=== PATIENT | male | born 1990 | race Caucasian/White ===

== ENCOUNTER 2018-01-02 11:04 | Emergency (ER) | payer SELFPAY ==
[2018-01-02 11:49] VITALS: BP 111/65; PULSE 71; RESP 20; TEMP 98.1; O2SAT 99
--- NOTE | 2018-01-02 12:49 | RADRPT ---
EXAM DATE/TIME: 01/02/2018 12:40 [place] COMPARISON: No previous studies available for comparison. INDICATIONS : Injured right arm when catching a dog last night, felt something in his arm "pop", felt the "pop" aga in this morning, severe pain entire right forearm, especially distal 1/3. Has had surgery on right fo rearm 9 times in 7years. MEDICAL HISTORY : right forearm fracture SURGICAL HISTORY : surgery right forearm x 9 ENCOUNTER: Initial ACUITY: 1 day PAIN SCORE: 10/10 LOCATION: Right forearm FINDINGS: Small defects are identified throughout the distal radius and ulna from previous intramedullary plate s. A nondisplaced fracture is identified through the distal shaft of the radius. Ulna is intact. Radiocarpal joint and elbow joints are intact. CONCLUSION: Nondisplaced fracture right radius. Multiple screw defects throughout the radius and ulna from previous intramedullary plates. Hayder Mead MD on January 02, 2018 at 12:45 Board Certified Radiologist. This report was verified electronically.
[2018-01-02] MEDS ORDERED: TYLETAB34 PO (13:19)
--- NOTE | 2018-01-02 13:25 | PD ---
HPI Chief Complaint: Injury Time Seen by Provider: 12:55 Travel History International Travel<30 days: No Contact w/Intl Traveler<30days: No Traveled to known affect area: No History of Present Illness HPI 27-year-old male presents for evaluation of right forearm pain. He reports that yesterday he was holding a dog, attempting to keep the dog from running away, when he felt a "pop" sensation in his right forearm. Since then he has had a throbbing pain in the right forearm which is constant, worse with palpation. He reports a history of multiple surgeries to his right forearm over the past several years performed by the [facility] in [place]. He is currently wearing a Velcro splint for support. He has no other complaints at this time. [facility] Social History Alcohol Use: No Tobacco Use: No Substance Use: No Allergies-Medications (Allergen,Severity, Reaction): Coded Allergies: No Known Allergies (Unverified , 01/02/18) Reported Meds & Prescriptions Reported Meds & Active Scripts Active Tylenol-Codeine #3 (Acetaminophen-Codeine) 300-30 mg Tab 1 Tab PO Q4H PRN Review of Systems General / Constitutional: No: Fever, Chills Musculoskeletal: Positive: Pain Physical Exam Narrative GENERAL: Well-developed well-nourished male in no acute distress SKIN: Warm and dry. Examination of the right forearm reveals surgical scars. There is a recent surgical wound which is Steri-Stripped. No erythema or dehiscence. HEAD: Atraumatic. Normocephalic. EYES: Pupils equal and round. No scleral icterus. No injection or drainage. ENT: No nasal bleeding or discharge. Mucous membranes pink and moist. NECK: Trachea midline. No JVD. CARDIOVASCULAR: Regular rate and rhythm. No murmur appreciated. RESPIRATORY: No accessory muscle use. Clear to auscultation. Breath sounds equal bilaterally. MUSCULOSKELETAL: Skin as noted above. There is tenderness to palpation of the right forearm. The compartments of the right arm are soft. 2+ radial pulse. Capillary refill less than 2 seconds all digits right hand. There is pain with range of motion activities of the right forearm. NEUROLOGICAL: Awake and alert. No obvious cranial nerve deficits. Motor grossly within normal limits. Normal speech. Data Data Last Documented VS Vital Signs Date Time Temp Pulse Resp B/P (MAP) Pulse Ox O2 Delivery O2 Flow Rate FiO2 01/02/18 11:49 98.1 71 20 111/65 (80) 99 Orders Orders Forearm (2vws) (01/02/18 ) Ed Discharge Order (01/02/18 13:18) Radiology Film Requests (01/02/18 ) Splint Or Brace Apply/Monitor (01/02/18 13:18) MDM Medical Decision Making Medical Screen Exam Complete: Yes Emergency Medical Condition: Yes Medical Record Reviewed: Yes Differential Diagnosis Fracture, sprain, strain Narrative Course CONCLUSION: Nondisplaced fracture right radius. Multiple screw defects throughout the radius and ulna from previous intramedullary plates. The patient will be placed in a sugar tong splint and given a copy of his x-ray to follow-up with his orthopedic surgeon about. He is stable for discharge. Diagnosis Primary Impression: Right forearm fracture Referrals: Orthopedist Additional Instructions: Follow-up with your orthopedist in the next week. Do not remove the splint. Return for any emergent medical conditions. Med/Other Pt SpecificInfo: Prescription(s) given, Orthopedic Instructions Scripts Acetaminophen-Codeine (Tylenol-Codeine #3) 300-30 mg Tab 1 TAB PO Q4H Y for PAIN, #20 TAB 0 Refills Prov: Dhaval Villarreal MD 01/02/18 Disposition: 01 DISCHARGE HOME Condition: Stable Tom Ny Jan 02, 2018 13:24
== END 2018-01-02 14:20 | disposition home or self-care (01) ==
LOC: NEPK 11:04
DX: S52.301A Unspecified fracture of shaft of right radius, initial encounter for closed fracture (principal); X50.9XXA Other and unspecified overexertion or strenuous movements or postures, initial encounter; Y93.K9 Activity, other involving animal care
CPT/HCPCS: 29125; 73090